=== PATIENT | female | born 1950 | race Caucasian/White ===

== ENCOUNTER → 2017-05-12 16:43 | Outpatient (CLI) | payer MEDICAID, SELFPAY ==
[2017-05-12 18:54] LABS: Amphetamine Urine VISTA NEGATIVE (<1000 ng/mL); Barbiturate Urine VISTA NEGATIVE (< 200 ng/mL); Benzodiazepine Urine VISTA POSITIVE (< 200 ng/mL); Cocaine Urine VISTA NEGATIVE (< 300 ng/mL); Ecstacy Urine VISTA NEGATIVE (< 500 ng/mL); Methadone Urine VISTA NEGATIVE (< 300 ng/mL); PCP Urine VISTA NEGATIVE (< 25 ng/mL); THC Urine VISTA NEGATIVE (< 50 ng/mL); Vista UDS pH Range 5
== END ==
PROVIDERS: Family Provider Family Medicine; PCP Family Medicine; Visit Provider Anesthesiology Pain Medicine
DX: F11.20 Opioid dependence, uncomplicated (principal)
CPT/HCPCS: 80307

== ENCOUNTER → 2017-06-05 12:09 | Outpatient (CLI) | payer MEDICAID, SELFPAY ==
--- NOTE | 2017-06-05 12:16 | MRI_ITS ---
STUDY: MRI LUMBAR SPINE WITHOUT CONTRAST REASON FOR EXAM: Female, 66 years old. BACK PAIN -- pain low back ,bilat hips and tailbone for several years,, hx breast cancer. TECHNIQUE: Standardized fat and water weighted pulse sequences were obtained in the sagittal and axial planes. COMPARISON: None FINDINGS: T12-L1: Normal endplates. Normal disc height, hydration and morphology. Normal bilateral facet joints. Normal central canal and bilateral lateral recesses. Normal bilateral intervertebral neural foramina. Normal lumbar lordosis. There is no substantial scoliosis. Normal conus medullaris that terminates at the T12 L1-2: There is minimal endplate spondylosis. There is no significant disc herniation, spinal canal or foramina stenosis.. L2-3: There is minimal disc space narrowing and endplate spondylosis. There is a mild disc bulge with small left foraminal protrusion resulting in minimal left foraminal stenosis. There is no central canal or right foraminal stenosis. There is mild facet arthropathy. L3-4: There is minimal disc space narrowing and endplate spondylosis. There is a mild disc bulge and facet arthropathy with mild central canal and mild right foraminal stenosis. There is no left foraminal stenosis. L4-5: There is minimal disc space narrowing and endplate spondylosis. There is a mild disc bulge asymmetric to the right with moderate right foraminal stenosis. There is minimal left foraminal stenosis. There is facet arthropathy with mild central canal. L5-S1: Normal endplates. Normal disc height, hydration and morphology. There is mild facet discopathy. Normal central canal and bilateral lateral recesses. Normal bilateral intervertebral neural foramina. Normal visualized sacral ala. Normal visualized paraspinous soft tissue structures. MRI/Spine Lumbar (Routine) IMPRESSION: L4/L5 moderate right foraminal stenosis. Electronically Signed: Ce Meier MD at 11:56 EST Tel , Service support ,
--- NOTE | 2017-06-05 12:16 | RAD_ITS ---
STUDY: X-RAY - SACRUM/COCCYX REASON FOR EXAM: Female, 66 years old. Low back pain TECHNIQUE: 3 view(s) of the sacrum and coccyx were obtained. COMPARISON: None. FINDINGS: Normal bilateral sacroiliac joints. Normal visualized sacral ala and fused sacral bodies. Normal sacrococcygeal junction with a normal angulation. Normal coccygeal segments. The presacral soft tissue structures are unremarkable. RAD/Sacrum-Coccyx min 2 Views IMPRESSION: Normal x-rays of the sacrum and coccyx. Electronically Signed: Indra Hebert MD at 23:59 EST , Service support ,
--- NOTE | 2017-06-05 12:16 | RAD_ITS ---
STUDY: X-RAY - LUMBAR SPINE REASON FOR EXAM: Female, 66 years old. Low back pain. TECHNIQUE: 3 view(s) of the lumbar spine were obtained. COMPARISON: 12/07/2015. FINDINGS: Normal lumbar lordosis. There is mild levoscoliosis. There is a normal alignment of the vertebrae. Normal vertebral bodies. There is mild multilevel spondylosis.. Normal disc space heights. There are degenerative changes of the facet joints in the lower spine. There is atherosclerotic calcification of the abdominal aorta without a demonstrated aneurysm. RAD/Lumbar Spine 2 or 3 Views IMPRESSION: Mild multilevel degenerative changes. Electronically Signed: Farhat Webster MD at 3:55 EST , Service support ,
== END ==
PROVIDERS: Family Provider Family Medicine; PCP Family Medicine; Visit Provider Anesthesiology Pain Medicine
DX: M54.9 Dorsalgia, unspecified (principal)
CPT/HCPCS: 72100; 72148; 72220

== ENCOUNTER 2018-08-03 08:40 | Emergency (ER) | payer MEDICAID, SELFPAY ==
[2018-08-03 08:41] VITALS: BP 147/84; PULSE 70; RESP 16; TEMP 36.7; O2SAT 99; BMI 23.6
[2018-08-03 08:47] VITALS: O2SAT 98
--- NOTE | 2018-08-03 09:01 | EKG12_ITS ---
Test Reason : FALL Blood Pressure : / mmHG Vent. Rate : 061 BPM Atrial Rate : 061 BPM P-R Int : 170 ms QRS Dur : 068 ms QT Int : 422 ms P-R-T Axes : 024 022 023 degrees QTc Int : 424 ms Normal sinus rhythm Septal infarct (cited on or before 08-JUN-2013), age undetermined Abnormal ECG Confirmed by ZOEY BRITT ([id number]), newspaper editor managing ABIODUN MILLER ([id number]) on 08/07/2018 10:57:31 AM Referred By: TEZ Confirmed By:ZOEY BRITT
--- NOTE | 2018-08-03 09:01 | CT_ITS ---
STUDY: CT BRAIN WITHOUT CONTRAST REASON FOR EXAM: Female, 67 years old. Status post fall RADIATION DOSAGE (If Supplied By Facility): CTDIvol = ( 44.99 ) mGy, DLP = ( 812.98 ) mGycm TECHNIQUE: Transaxial CT imaging of the brain was performed without administration of intravenous contrast material. Individualized dose optimization techniques were used for this CT. COMPARISON: 03/31/2014 FINDINGS: Normal soft tissue structures. Normal calvarium. There is mild cerebral atrophy with widening of the extra-axial spaces and ventricular dilatation. There are areas of decreased attenuation within the white matter tracts of the supratentorial brain, consistent with microvascular disease changes. Normal basal ganglia and thalami. Normal brainstem. Normal cerebellum. There is no intracranial hemorrhage. There are no findings of an acute ischemic infarction. Normal visualized paranasal sinuses. CT/Brain/Head without Contrast IMPRESSION: Chronic involutional changes of the brain. Electronically Signed: Emmanuel Palmer DO at 10:25 EDT Tel , Service support ,
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
--- NOTE | 2018-08-03 09:15 | RAD_ITS ---
STUDY: X-RAY CHEST REASON FOR EXAM: Female, 67 years old. Chest pain and shortness of breath TECHNIQUE: Single AP portable view of the chest. COMPARISON: 12/07/2015 FINDINGS: There is hyperinflation of the lungs consistent with chronic obstructive lung disease (COPD). Lungs are clear. There is no demonstrated pleural abnormality. Normal size heart. Normal mediastinum and swati. Normal visualized pulmonary arteries. There is atherosclerotic tortuosity of the aortic arch and descending thoracic aorta. There are diffuse degenerative changes of the visualized thoracic spine. Normal visualized ribs, clavicles, and shoulders. Stable surgical clips overlying the right chest wall. Stable C-spine hardware There is no demonstrated abnormality of the visualized soft tissue structures of the upper abdomen. RAD/Chest 1 View (Portable) IMPRESSION: COPD without acute findings Electronically Signed: Emmanuel Palmer DO at 9:48 EDT Tel , Service support ,
[2018-08-03 09:28] LABS: Color, Urine Yellow (Yellow); Glucose, Dipstick Normal (Normal); Ketone-Dipstick 15 mg/dl (Negative); Leukocyte Esterase-Dipstick 25 /ul (Negative); Nitrite-Dipstick Negative (Negative); Occult Blood-Urine 10 /ul (Negative); Protein-Dipstick 15 mg/dl (Negative); Urine Bilirubin Dipstick Negative (Negative); Urine Clarity Sl. Cloudy (Clear); Urine Urobilinogen 4 mg/dl (Normal)
[2018-08-03] MEDS: 0.9% Normal Saline 1,000 ML 150 ML IV (09:30)
[2018-08-03 09:31] LABS: Bacteria RARE /hpf (None Seen); Calcium Oxalate Crystals Ur RARE /hpf (<or=2+); Mucous, Urine 1+ /hpf (<or=2+); Red Blood Cells-Urine 0-5 SEEN /hpf (0-5); Squamous Epithelial Cells - UA 0-5 SEEN /hpf (5-10); White Blood Cells 0-5 SEEN /hpf (0-5)
[2018-08-03 09:37] LABS: Absolute Lymphocyte Count 1.99 X10^3/ul (0.83-4.51); Absolute Neutrophil Count 3.5 X10^3/uL (2.0-7.7); Basophil# 0.04 X10^3/uL; Basophil% 0.6 % (0-1); Eosinophils% 4.5 % (0-5); Hematocrit 43.6 % (37-47); Hemoglobin 14.3 g/dl (12.0-15.0); Lymphocyte # 1.99 X10^3/ul (4.0); Lymphocyte % 29.6 % (19-41); Mean Corp Hgb Conc 32.8 g/gl (32-36); Mean Corpuscular Hgb 28.4 pg (27.0-32.0); Mean Corpuscular Volume 86.7 fL (81-99); Mean Platelet Vol. 10.9 fl (6.2-12.0); Monocyte# 0.84 X10^3/uL; Monocyte% 12.5 % (0-10); Neutrophil # 3.54 X10^3/uL (2.7-7.7); Neutrophil % 52.7 % (47-70); Platelet Count 301 K/mm3 (150-450); RBC Distribution Width CV 14.2 % (11.6-14.6); RBC Distribution Width SD 44.7 fl (35.1-43.9); Red Blood Count 5.03 M/mm3 (4.2-5.4); White Blood Count 6.7 K/mm3 (4.4-11.0)
[2018-08-03 09:38] LABS: POSITIVE COUNT NO; POSITIVE DIFFERENTIAL NO; POSITIVE MORPHOLOGY NO
[2018-08-03 09:47] LABS: AST(SGOT) 18 U/L (15-37); Alanine Aminotransfer ALT/SGPT 13 U/L (13-56); Albumin, Serum 3.9 g/dL (3.2-5.0); Alkaline Phosphatase 88 U/L (45-117); Anion Gap 3 (5-15); BUN 8 mg/dL (7-18); BUN/Creat Ratio 10.7 RATIO (10-20); Bilirubin, Direct 0.16 mg/dL (0.00-0.30); Chloride 108 mmol/L (98-107); Creatinine, Serum 0.75 mg/dL (0.55-1.02); EST Glomerular Filtration Rate 83 mL/min (>60); Est Glom Filt Rate - Afr Amer 100 mL/min (>60); Estimated Creatinine Clearance 64.58 ml/min; Globulin 4.2 g/dL (2.2-4.2); Glucose 99 mg/dL (74-106); Potassium 3.6 mmol/L (3.5-5.1); Protein, Total 8.1 g/dL (6.4-8.2); Sodium Level 140 mmol/L (136-145)
[2018-08-03] MEDS: ALPRAZolam 0.5 MG Tablet PO (10:31)
[2018-08-03 10:32] VITALS: BP 151/72; PULSE 69; RESP 23; O2SAT 96
--- NOTE | 2018-08-03 10:35 | ED.DEP ---
ED Disposition - Plan for ED Patient: Instructions: ED Mechanical Fall, ED Fall Uncertain Cause Referrals: Facundo Cortez DO [Primary Care Provider] - Additional Instructions: Follow-up with all of your outpatient providers for the syncope and all of your other health concerns
[2018-08-03 10:54] VITALS: BP 124/77; PULSE 62; RESP 15; O2SAT 98
== END 2018-08-03 10:57 | disposition home or self-care (01) ==
PROVIDERS: Emergency Provider Emergency Medicine; Family Provider Family Medicine; PCP Family Medicine
DX: S09.90XA Unspecified injury of head, initial encounter (principal); W18.12XA Fall from or off toilet with subsequent striking against object, initial encounter; Y93.9 Activity, unspecified; Y92.002 Bathroom of unspecified non-institutional (private) residence as the place of occurrence of the external cause; Y99.9 Unspecified external cause status; Z90.11 Acquired absence of right breast and nipple; G89.29 Other chronic pain; I10 Essential (primary) hypertension; Z85.89 Personal history of malignant neoplasm of other organs and systems
CPT/HCPCS: 70450; 71045; 80048; 80076; 81001; 84484; 85025; 93005; 96360; 99285; J7030; A4216

== ENCOUNTER 2018-08-04 10:51 | Emergency (ER) | payer MEDICAID, SELFPAY ==
[2018-08-03 08:41] VITALS: BMI 23.6
[2018-08-04 10:52] VITALS: BP 157/92; PULSE 69; RESP 18; TEMP 36.6; O2SAT 100; BMI 24.4
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
[2018-08-04 12:12] VITALS: BP 145/70; PULSE 70; RESP 18; O2SAT 99
== END 2018-08-04 12:16 | disposition home or self-care (01) ==
PROVIDERS: Emergency Provider Emergency Medicine; Family Provider Family Medicine; PCP Family Medicine
DX: F43.0 Acute stress reaction (principal); G89.4 Chronic pain syndrome; I10 Essential (primary) hypertension; B18.2 Chronic viral hepatitis C; F32.9 Major depressive disorder, single episode, unspecified; F41.9 Anxiety disorder, unspecified; F17.200 Nicotine dependence, unspecified, uncomplicated; Z90.11 Acquired absence of right breast and nipple; Z85.89 Personal history of malignant neoplasm of other organs and systems
CPT/HCPCS: 99282

== ENCOUNTER → 2018-09-08 12:19 | Outpatient (CLI) | payer MEDICAID, SELFPAY ==
[2018-09-08 14:22] LABS: Absolute Lymphocyte Count 1.84 X10^3/ul (0.83-4.51); Absolute Neutrophil Count 7.9 X10^3/uL (2.0-7.7); Basophil# 0.03 X10^3/uL; Basophil% 0.3 % (0-1); Eosinophils% 2.7 % (0-5); Hemoglobin 13.3 g/dl (12.0-15.0); Lymphocyte # 1.84 X10^3/ul (4.0); Lymphocyte % 16.3 % (19-41); Mean Corp Hgb Conc 31.7 g/gl (32-36); Mean Corpuscular Volume 85.4 fL (81-99); Mean Platelet Vol. 11.9 fl (6.2-12.0); Monocyte# 1.19 X10^3/uL; Monocyte% 10.6 % (0-10); Neutrophil # 7.89 X10^3/uL (2.7-7.7); Neutrophil % 69.9 % (47-70); Platelet Count 256 K/mm3 (150-450); RBC Distribution Width CV 14.3 % (11.6-14.6); RBC Distribution Width SD 43.6 fl (35.1-43.9); Red Blood Count 4.92 M/mm3 (4.2-5.4); White Blood Count 11.3 K/mm3 (4.4-11.0)
[2018-09-08 14:28] LABS: POSITIVE COUNT NO; POSITIVE DIFFERENTIAL NO; POSITIVE MORPHOLOGY NO
[2018-09-08 14:38] LABS: ALB/GLOB Ratio 0.9 RATIO (0.9-2.4); AST(SGOT) 14 U/L (15-37); Alanine Aminotransfer ALT/SGPT 18 U/L (13-56); Albumin, Serum 3.6 g/dL (3.2-5.0); Alkaline Phosphatase 81 U/L (45-117); Anion Gap 9 (5-15); BUN 15 mg/dL (7-18); BUN/Creat Ratio 17.1 RATIO (10-20); Calcium,Total 9.4 mg/dL (8.5-10.1); Chloride 103 mmol/L (98-107); Creatinine, Serum 0.88 mg/dL (0.55-1.02); EST Glomerular Filtration Rate 69 mL/min (>60); Est Glom Filt Rate - Afr Amer 83 mL/min (>60); Globulin 4.2 g/dL (2.2-4.2); Glucose 79 mg/dL (74-106); Protein, Total 7.8 g/dL (6.4-8.2); Sodium Level 140 mmol/L (136-145)
== END ==
PROVIDERS: Family Provider Family Medicine; PCP Family Medicine; Referring Provider Family Medicine; Visit Provider Family Medicine
DX: R42 Dizziness and giddiness (principal); I95.1 Orthostatic hypotension; R51 Headache
CPT/HCPCS: 36415; 80053; 85025

== ENCOUNTER → 2018-10-13 | Outpatient (CLI) | payer MEDICAID, SELFPAY ==
--- NOTE | 2018-10-13 15:37 | CT_ITS ---
STUDY: CT SOFT TISSUE NECK WITH CONTRAST REASON FOR EXAM: Female, 68 years old. 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 High resolution transaxial imaging was performed following intravenous administration of 75mL IV Isovue 300. Sagittal and coronal images were reconstructed. Individualized dose optimization techniques were used for this CT. COMPARISON: None. FINDINGS: Normal bilateral parotid glands. Normal bilateral tar chaser spaces. Normal bilateral parapharyngeal spaces. Normal bilateral carotid spaces. Normal right sublingual and submandibular glands and spaces. Status post left submandibular gland resection. Normal visualized nasopharynx. Normal retropharyngeal space. Normal perivertebral space. Normal visualized bilateral faucial tonsils. The visualized tongue, tongue base and oropharynx are normal. Postsurgical changes status post left radical neck dissection. There is an enlarged node in the right prevascular space measuring approximately 1.38 x 1.02 cm. There is also a second mildly enlarged lymph node measuring 1 x 0.8 cm There is a multilobulated hypoattenuated mass which appears to be arising from the epiglottis extending into the pre-epiglottic and paraglottic adipose spaces.. The lesion is larger on the right and appears to be narrowing the hypopharyngeal airway greater on the right as well as extending into the vallecula.. There is encroachment upon the hyoid bone but no obvious destruction. Normal visualized bilateral piriform sinuses, aryepiglottic folds, vocal cords, and arytenoid-cricoid articulations. Normal subglottic trachea. Normal bilateral lobes of the thyroid gland. Normal visualized pulmonary apices. Normal visualized paranasal sinuses. Postsurgical changes status post anterior fusion of C5-6. CT/Soft Tissue Neck WITH Contrast IMPRESSION: Large mass in the hypopharynx which appears to be arising from the epiglottis larger on the right and appears to be narrowing the hypopharyngeal airway also slightly greater on the right. There are mildly enlarged lymph nodes in the right prevascular space possibly metastatic. Clinical correlation recommended Status post resection of left mandibular gland and radical neck resection.. Electronically Signed: Reuben Salazar MD at 17:03 EDT , Service support ,
== END | disposition home or self-care (01) ==
LOC: CT 15:35
PROVIDERS: Family Provider Family Medicine; PCP Family Medicine; Referring Provider Otolaryngology; Visit Provider Otolaryngology
DX: C08.0 Malignant neoplasm of submandibular gland (principal)
CPT/HCPCS: 70491; Q9967

== ENCOUNTER → 2019-02-04 15:56 | Outpatient (CLI) | payer MEDICAID, SELFPAY ==
[2019-02-04 17:19] LABS: Absolute Lymphocyte Count 2.51 X10^3/uL (0.83-4.51); Absolute Neutrophil Count 9.4 X10^3/uL (2.0-7.7); Basophil# 0.08 X10^3/uL; Basophil% 0.6 % (0-1); Eosinophil# 0.37 X10^3/uL; Eosinophils% 2.7 % (0-5); Hematocrit 44.3 % (37-47); Hemoglobin 13.5 g/dL (12.0-15.0); Lymphocyte # 2.51 X10^3/ul (4.0); Lymphocyte % 18.2 % (19-41); Mean Corp Hgb Conc 30.5 g/dL (32-36); Mean Corpuscular Volume 91.9 fL (81-99); Mean Platelet Vol. 12.3 fl (6.2-12.0); Monocyte# 1.35 X10^3/uL; Monocyte% 9.8 % (0-10); NRBC Flagged by Analyzer 0 % (0-5); Neutrophil # 9.43 X10^3/uL (2.7-7.7); Neutrophil % 68.3 % (47-70); POSITIVE COUNT YES; Platelet Count 199 K/mm3 (150-450); RBC Distribution Width CV 13.9 % (11.6-14.6); RBC Distribution Width SD 47.1 fl (35.1-43.9); Red Blood Count 4.82 M/mm3 (4.2-5.4); White Blood Count 13.8 K/mm3 (4.4-11.0)
[2019-02-04 17:20] LABS: ALB/GLOB Ratio 0.9 RATIO (0.9-2.4); AST(SGOT) 25 U/L (15-37); Alanine Aminotransfer ALT/SGPT 25 U/L (13-56); Albumin, Serum 3.8 g/dL (3.2-5.0); Alkaline Phosphatase 75 U/L (45-117); Anion Gap 5 (5-15); BUN 14 mg/dL (7-18); BUN/Creat Ratio 17.5 RATIO (10-20); Calcium,Total 9.4 mg/dL (8.5-10.1); Chloride 101 mmol/L (98-107); EST Glomerular Filtration Rate 76 mL/min (>60); Est Glom Filt Rate - Afr Amer 92 mL/min (>60); Globulin 4.3 g/dL (2.2-4.2); Glucose 89 mg/dL (74-106); Potassium 4.1 mmol/L (3.5-5.1); Protein, Total 8.1 g/dL (6.4-8.2); Sodium Level 138 mmol/L (136-145)
[2019-02-04 17:28] LABS: Differential Indicated SCAN CRITERIA MET
[2019-02-04 17:31] LABS: Hemoglobin A1c 5.6 % (4.2-6.3); International Normalized Ratio 1.1; Prothrombin Time (Protime)PT. 13.9 SECONDS (11.7-14.9)
[2019-02-04 17:56] LABS: Differential Comment SCANNED
[2019-02-05 09:40] LABS: Hepatitis B Surface Antibody Reactive
[2019-02-06 11:40] LABS: AFP, Tumor Marker 2.2 ng/mL (0.0-8.3); Hepatitis B Core Ab Total Negative (Negative)
== END ==
PROVIDERS: Family Provider Family Medicine; PCP Family Medicine; Visit Provider Family Medicine
DX: I10 Essential (primary) hypertension (principal); R73.01 Impaired fasting glucose; B19.20 Unspecified viral hepatitis C without hepatic coma
CPT/HCPCS: 36415; 80053; 82105; 83036; 85025; 85610; 86704; 86706

== ENCOUNTER → 2019-11-01 13:18 | Outpatient (CLI) | payer MEDICAID, SELFPAY ==
--- NOTE | 2019-11-01 13:28 | MRI_ITS ---
STUDY: MRI LUMBAR SPINE WITHOUT CONTRAST REASON FOR EXAM: Female, 69 years old. low back pain pain, leg/hip pain right and gt;left TECHNIQUE: Standardized fat and water weighted pulse sequences were obtained in the sagittal and axial planes. COMPARISON: 06/05/2017 FINDINGS: Normal lumbar lordosis. There is no substantial scoliosis. Normal conus medullaris that terminates at the L1. L1-2: There is minimal disc space narrowing and endplate spondylosis. There is no significant disc herniation, central canal or foraminal stenosis. L2-3: There is mild disc space narrowing and endplates spondylosis. There is a mild disc bulge and facet arthropathy without significant central canal or foraminal stenosis. Findings are stable since prior examination L3-4: There is mild disc space narrowing and endplates spondylosis. There is minimal increased moderate disc bulge asymmetric to the right with moderate right foraminal stenosis. There is posterior annular fissure now. There is facet arthropathy contributing to mild central canal stenosis. There is minimal left foraminal stenosis. L4-5: There is minimal disc space narrowing and endplates spondylosis. There is minimally increased moderate disc bulge asymmetric to the right with moderate right foraminal stenosis. There is posterior annular fissure now. There is no significant central canal or left foraminal stenosis L5-S1: Normal endplates. Normal disc height, hydration and morphology. Normal central canal and bilateral lateral recesses. Normal bilateral intervertebral neural foramina. Mild facet arthropathy Normal visualized sacral ala. MRI/Spine Lumbar (Routine) IMPRESSION: Minimally increased degenerative changes. L3-L5: Moderate right foraminal stenosis. Electronically Signed: Ce Meier MD at 14:32 EDT Tel , Service support ,
== END ==
PROVIDERS: PCP Family Medicine; Referring Provider Family Medicine; Visit Provider Family Medicine
DX: M54.16 Radiculopathy, lumbar region (principal); M51.36 Other intervertebral disc degeneration, lumbar region; Z85.9 Personal history of malignant neoplasm, unspecified
CPT/HCPCS: 72148

== ENCOUNTER → 2019-12-10 13:46 | Outpatient (CLI) | payer MEDICAID, SELFPAY ==
[2019-12-10 15:37] LABS: OXY Internal Control LINE = VALID (VALID); Oxycodone Drug Screen Positive (<100 ng/mL)
[2019-12-10 15:38] LABS: Amphetamine Urine VISTA NEGATIVE (<1000 ng/mL); Barbiturate Urine VISTA NEGATIVE (< 200 ng/mL); Benzodiazepine Urine VISTA POSITIVE (< 200 ng/mL); Cocaine Urine VISTA NEGATIVE (< 300 ng/mL); Ecstacy Urine VISTA NEGATIVE (< 500 ng/mL); Methadone Urine VISTA NEGATIVE (< 300 ng/mL); PCP Urine VISTA NEGATIVE (< 25 ng/mL); THC Urine VISTA NEGATIVE (< 50 ng/mL); Vista UDS pH Range 6
== END ==
PROVIDERS: PCP Family Medicine; Visit Provider Family Medicine
DX: Z79.899 Other long term (current) drug therapy (principal)
CPT/HCPCS: 80307; 80365; G0480

== ENCOUNTER 2020-03-27 13:30 | Emergency (ER) | payer MEDICAID, SELFPAY ==
[2020-03-27 13:31] VITALS: BP 121/70; PULSE 56; RESP 17; TEMP 36; O2SAT 96; BMI 23.0
--- NOTE | 2020-03-27 14:09 | ED.DCSUM_ITS ---
History of Present Illness Chief Complaint: Abd Pain Informant: Patient Onset: Weeks - 3 to 4 weeks Context: Sudden Onset Timing: Continuous, Waxes and wanes Quality: Crampy Location: Entire abdomen. Starts centrally and radiates outward to the right and lef Current Severity: Mild Maximum Severity: Severe Worsened by: Movement and eating Relieved by: Nothing Associated Symptoms: Nausea and vomiting Narrative: Patient 69-year-old woman who was seen twice at [facility] in [place]. She states first CAT scan revealed thickening of the gastric mucosa suggestive of peptic ulcer disease versus malignancy. Second CAT scan which performs performed last week revealed colitis and she was placed ciprofloxacin and metronidazole. She denies black or maroon stool. She denies blood or mucus in her stool. She denies change in the consistency, caliber, color or frequency of her bowel movements. She denies dysuria, frequency, urgency or hematuria. She reports an 8 pound weight loss because she cannot eat. Patient denies history of renal ureterolithiasis. Patient denies cardiac respiratory symptoms. Patient was referred by her primary care physician to a surgeon on staff. She was informed that he is not on her insurance as a provider. She denies history of trauma. She denies rash or skin lesions. Prior similar symptoms: Yes Recent Illness/Hospitalization: Yes - Past Medical History (1) Abnormal CT of the abdomen Status: Acute (2) Acute infectious colitis Status: Acute (3) B12 deficiency Status: Acute (4) CVA (cerebral vascular accident) Status: Acute (5) Dyslipidemia Status: Acute (6) Emphysema, unspecified Status: Acute (7) Epigastric pain Status: Acute (8) Anxiety Status: Chronic (9) Chronic pain syndrome Status: Chronic (10) HTN (hypertension) Status: Chronic (11) Hepatitis C Status: Chronic (12) Tobacco use Status: Chronic Past Medical History - Allergies and Home Meds Allergies/Adverse Reactions: Allergies No Known Allergies Allergy (Verified 03/27/20 13:30) Primary Care Physician: Facundo Cortez DO [Primary Care Provider] - Prior records reviewed: Yes Surgical History: noncontributory, - - Appendectomy, right mastectomy, left parotid gland resection, throat cancer resection, right ankle surgery, tonsillectomy. Lives: Alone Smoking Status: Current every day smoker Alcohol: Rare Drugs: None - Family History Sibling Family History: Family History (Last Updated 03/08/20 @ 09:32 by Christina Renner) Father Cancer Mother Hypertension Sister Diabetes Family History: Reports: Diabetes Maternal Family History: Family History (Last Updated 03/08/20 @ 09:32 by Christina Renner) Father Cancer Mother Hypertension Sister Diabetes Family History: Reports: No pertinent history Paternal Family History: Family History (Last Updated 03/08/20 @ 09:32 by Christina Renner) Father Cancer Mother Hypertension Sister Diabetes Family History: Reports: No pertinent history Review of Systems General: Reports: Chills, Malaise, Weight loss. Denies: Fever, Subjective, Sweats Eyes: Denies: Visual changes - bilaterally, Blurred Vision - bilaterally, Diplopia ENT: Denies: Bilateral ear pain, Rhinorrhea, Sore throat Cardiovascular: Denies: Chest pain, Palpitations Respiratory: Denies: Dyspnea, Cough, Dyspnea on exertion Gastrointestinal: Reports: Abdominal pain, Nausea, Vomiting. Denies: Diarrhea, Constipation, Melena, Hematochezia Genitourinary: Denies: Dysuria, Hematuria, Frequency Musculoskeletal: Denies: Myalgias, Arthralgias, Neck pain, Back pain, Swelling, Extremity Pain, -, - Skin: Denies: Rash, Wounds Neurological: Denies: Headache, Weakness, Parasthesia Endocrine: Denies: Polyuria, Polydipsia Hematologic: Denies: Easy bruising, Easy bleeding Allergy: Denies: Uticaria Physical Exam Vital Signs/Narrative: Vital Signs Temp Pulse Resp BP Pulse Ox 03/27/20 13:31 96.8 F L 56 L 17 121/70 H 96 Inital Vital Signs reviewed: Yes General: Well nourished, Well developed, No Acute Distress Head: Normocephalic, Atraumatic Eyes: Perrl, EOMI. Negative for: Pale conjunctiva, Scleral icterus ENT: Moist mucous membranes, No rhinorrhea Neck: Supple, Nontender, No lymphadenopathy, No JVD, - - Right carotid bruit Cardiovascular: Regular rhythm, No murmurs, Normal S1, Normal S2, Bradycardia Respiratory: No distress, CTA bilaterally, Chest nontender Abdomen: Soft, Nondistended, No masses, Tender, Hypoactive bowel sounds. Negative for: Nontender, Normal bowel sounds, Guarding, Rebound tenderness, Hyperactive bowel sounds, Hepatomegaly, Splenomegaly, Mass, Pulsatile mass, Ventral hernia, Umbilical hernia Rectal: Deferred Back: Nontender, Normal Inspection. Negative for: CVA tenderness Extremities: Nontender, No edema Skin: Normal color, No rash, No Trauma. Negative for: Cyanosis, Diaphoresis, Jaundice Neurological: Alert, Oriented x3, Cranial nerves II-XII grossly intact, Normal Strength, Normal Sensation Psychological: Depressed Diagnostic/Tx/Re-eval - Medical Decision Making Will review patient's results from outside facility. She does not have a surgical abdomen or guarding. Will obtain blood work to determine if there is need for any further diagnostic testing. Of note patient does have history of chronic pain syndrome. This was found reviewing prior records/past records at [facility]. Laboratory Results 03/27/20 03/27/20 14:00 14:00 WBC 12.0 H RBC 4.83 Hgb 13.8 Hct 43.0 MCV 89.0 MCH 28.6 MCHC 32.1 RDW Std Deviation 44.2 H RDW Coeff of John 13.6 Plt Count 254 MPV 11.3 Immature Gran % (Auto) 0.300 Neut % (Auto) 64.1 Lymph % (Auto) 24.5 [place] % (Auto) 8.9 Eos % (Auto) 1.6 Baso % (Auto) 0.6 Absolute Neuts (auto) 7.7 Absolute Lymphs (auto) 2.93 Nucleated RBC % 0 Sodium 142 Potassium 4.3 Chloride 110 H Carbon Dioxide 27.0 Anion Gap 5 BUN 13 Creatinine 1.11 H Estim Creat Clear Calc 40.68 Est GFR (MDRD) Af Amer 63 Est GFR (MDRD) Non-Af 52 L BUN/Creatinine Ratio 11.7 Glucose 94 Calcium 9.1 Total Bilirubin 0.30 AST 18 ALT 18 Alkaline Phosphatase 65 Total Protein 7.4 Albumin 3.5 Globulin 3.9 Albumin/Globulin Ratio 0.9 Lipase 171 Count is slightly elevated which is nonspecific. Creatinine is slightly elevated 1.11 with a GFR of 52. Patient was informed no further testing is warranted. She was informed she needs to contact her primary care physician for referral for colonoscopy at [facility]. She states that soon as she can see anyone is April 27. I recommended that she contact her primary care physician to facilitate getting an appointment sooner with a surgeon who can perform an EGD and colonoscopy. Furthermore, someone who is on her insurance plan. ED Disposition - Plan for ED Patient: Disposition: Home or Assisted Living Diagnosis: Colitis, Generalized abdominal pain, Nausea and vomiting, Acute renal insufficiency Instructions: ED Vomiting and Diarrhea ..., ED Renal Insufficiency Referrals: Facundo Cortez DO [Primary Care Provider] - 3-5 Days if not improving Additional Instructions: 1. Take antibiotics until gone 2. Avoid any foods that may cause you to have increased pain
[2020-03-27] MEDS: Ondansetron 4 MG/2 ML Vial IV (14:13)
[2020-03-27] MEDS: 0.9% Normal Saline 1,000 ML 1000 ML IV (14:13)
[2020-03-27 14:15] LABS: Absolute Lymphocyte Count 2.93 X10^3/uL (0.83-4.51); Absolute Neutrophil Count 7.7 X10^3/uL (2.0-7.7); Basophil# 0.07 X10^3/uL; Basophil% 0.6 % (0-1); Eosinophil# 0.19 X10^3/uL; Eosinophils% 1.6 % (0-5); Hemoglobin 13.8 g/dL (12.0-15.0); Lymphocyte # 2.93 X10^3/ul (4.0); Lymphocyte % 24.5 % (19-41); Mean Corp Hgb Conc 32.1 g/dL (32-36); Mean Corpuscular Hgb 28.6 pg (27.0-32.0); Mean Platelet Vol. 11.3 fl (6.2-12.0); Monocyte# 1.06 X10^3/uL; Monocyte% 8.9 % (0-10); NRBC Flagged by Analyzer 0 % (0-5); Neutrophil # 7.66 X10^3/uL (2.7-7.7); Neutrophil % 64.1 % (47-70); Platelet Count 254 K/mm3 (150-450); RBC Distribution Width CV 13.6 % (11.6-14.6); RBC Distribution Width SD 44.2 fl (35.1-43.9); Red Blood Count 4.83 M/mm3 (4.2-5.4)
[2020-03-27] MEDS: Dicyclomine 10 MG Capsule 20 MG PO (14:53)
[2020-03-27 15:55] LABS: ALB/GLOB Ratio 0.9 RATIO (0.9-2.4); AST(SGOT) 18 U/L (15-37); Alanine Aminotransfer ALT/SGPT 18 U/L (13-56); Albumin, Serum 3.5 g/dL (3.2-5.0); Alkaline Phosphatase 65 U/L (45-117); Anion Gap 5 (5-15); BUN 13 mg/dL (7-18); BUN/Creat Ratio 11.7 RATIO (10-20); Calcium,Total 9.1 mg/dL (8.5-10.1); Chloride 110 mmol/L (98-107); Creatinine, Serum 1.11 mg/dL (0.55-1.02); EST Glomerular Filtration Rate 52 mL/min (>60); Est Glom Filt Rate - Afr Amer 63 mL/min (>60); Estimated Creatinine Clearance 40.68 ml/min; Globulin 3.9 g/dL (2.2-4.2); Glucose 94 mg/dL (74-106); Lipase 171 U/L (73-393); Potassium 4.3 mmol/L (3.5-5.1); Protein, Total 7.4 g/dL (6.4-8.2); Sodium Level 142 mmol/L (136-145)
== END 2020-03-27 16:12 | disposition home or self-care (01) ==
PROVIDERS: Emergency Provider Emergency Medicine; PCP Family Medicine
DX: K52.9 Noninfective gastroenteritis and colitis, unspecified (principal); N28.9 Disorder of kidney and ureter, unspecified; R11.2 Nausea with vomiting, unspecified; R10.84 Generalized abdominal pain; G89.4 Chronic pain syndrome; F32.9 Major depressive disorder, single episode, unspecified; F17.200 Nicotine dependence, unspecified, uncomplicated; I10 Essential (primary) hypertension; E78.5 Hyperlipidemia, unspecified; B18.2 Chronic viral hepatitis C; Z82.49 Family history of ischemic heart disease and other diseases of the circulatory system; Z86.73 Personal history of transient ischemic attack (TIA), and cerebral infarction without residual deficits; Z83.3 Family history of diabetes mellitus; Z90.11 Acquired absence of right breast and nipple
CPT/HCPCS: 80053; 83690; 85025; 96361; 96374; 99283; J7030; A4216; J2405